=== PATIENT | female | born 1995 | race Caucasian/White ===

== ENCOUNTER 2019-02-03 22:17 | Emergency (ER) | payer MEDICAID ==
--- NOTE | 2019-02-03 23:48 | EDM.PDOC ---
ED HPI GENERAL MEDICAL PROBLEM - General Chief Complaint: Respiratory Problem Stated Complaint: SHORT OF BREATH,COUGH Time Seen by Provider: 02/03/19 23:14 Source of Information: Reports: Patient, Family, RN Notes Reviewed History Limitations: Reports: No Limitations - History of Present Illness INITIAL COMMENTS - FREE TEXT/NARRATIVE: 23-year-old female presents emergency department a complaint of cough and sputum production, has had fevers at night does produce sputum that is yellow in color does not use tobacco products - Related Data Allergies Allergy/AdvReac Type Severity Reaction Status Date / Time dog dander Allergy Respiratory Verified 02/03/19 23:06 Distress Home Meds: Home Meds NK [No Known Home Meds] 02/03/19 [History] Past Medical History Respiratory History: Reports: Asthma Social & Family History - Tobacco Use Smoking Status *Q: Never Smoker - Caffeine Use Caffeine Use: Reports: Coffee - Recreational Drug Use Recreational Drug Use: No ED ROS GENERAL - Review of Systems Review Of Systems: See Below Constitutional: Reports: Fever HEENT: Reports: No Symptoms Respiratory: Reports: Shortness of Breath, Cough, Sputum Cardiovascular: Reports: No Symptoms GI/Abdominal: Reports: No Symptoms ED EXAM, GENERAL - Physical Exam Exam: See Below Exam Limited By: No Limitations General Appearance: Alert, WD/WN, No Apparent Distress Ears: Normal External Exam, Normal Canal, Hearing Grossly Normal, Normal TMs Nose: Normal Inspection, Normal Mucosa, No Blood Throat/Mouth: Normal Inspection, Normal Lips, Normal Teeth, Normal Gums, Normal Oropharynx, Normal Voice, No Airway Compromise Head: Atraumatic, Normocephalic Neck: Normal Inspection, Supple, Non-Tender, Full Range of Motion Respiratory/Chest: No Respiratory Distress, Lungs Clear, Normal Breath Sounds, No Accessory Muscle Use, Chest Non-Tender Cardiovascular: Regular Rate, Rhythm, No Murmur Course - Vital Signs Last Recorded V/S: Last Vital Signs Temp 97.6 F 02/03/19 23:08 Pulse 75 02/03/19 23:08 Resp 16 02/03/19 23:08 BP 166/107 H 02/03/19 23:08 Pulse Ox 97 02/03/19 23:08 Departure - Departure Time of Disposition: 23:47 Disposition: Home, Self-Care 01 Condition: Fair Clinical Impression: Bronchitis - Discharge Information Instructions: Upper Respiratory Infection, Adult Referrals: Bib Casiano MD [Primary Care Provider] - Additional Instructions: Take full course of antibiotics, please followup with your primary care provider in 3-5 days if not better, please call return to the emergency department with worsening of symptoms. Sepsis Event Note - Evaluation Sepsis Screening Result: No Definite Risk - Focused Exam Vital Signs: Vital Signs Temp Pulse Resp BP Pulse Ox 02/03/19 23:08 97.6 F 75 16 166/107 H 97 02/03/19 23:01 97.6 F 75 16 166/107 H 97 Date Exam was Performed: 02/03/19 Time Exam was Performed: 23:44 - Assessment/Plan Plan: Assessment Acuity = acute Site and laterality = bronchitis Etiology = suspicious for bacterial cause Manifestations = cough Location of injury = Home Lab values = none Plan Elect to treat empirically azithromycin 5-day course follow-up primary care 3 to 5 days if not better This note was dictated using [employer] voice recognition software please call with any questions on syntax or grammar.
== END 2019-02-03 23:58 | disposition home or self-care (01) ==
LOC: JP.ED 22:17
DX: J40 Bronchitis, not specified as acute or chronic (principal); Z91.048 Other nonmedicinal substance allergy status
CPT/HCPCS: 99283

== ENCOUNTER 2019-02-07 13:04 | Emergency (ER) | payer MEDICAID ==
--- NOTE | 2019-02-07 13:53 | EDM.PDOC ---
ED HPI GENERAL MEDICAL PROBLEM - General Chief Complaint: General Stated Complaint: TOOTH PAIN Time Seen by Provider: 02/07/19 13:35 Source of Information: Reports: Patient, Old Records History Limitations: Reports: No Limitations - History of Present Illness INITIAL COMMENTS - FREE TEXT/NARRATIVE: 23 yo female with L sided face pain. No pain with chewing or brushing. Sx's for a couple days and worsening. Has nasal discharge, nonpurulent. No fever. Partial relief with ibuprofen. No SEO. No facial swelling. Onset: Gradual Onset Date: 02/05/19 Duration: Day(s):, Getting Worse Location: Reports: Face Quality: Reports: Pressure Severity: Moderate Improves with: Reports: Medication Worsens with: Reports: Other (time) Context: Reports: Other (see HPI) Associated Symptoms: Reports: No Other Symptoms. 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 Left Face/Facial Pain Score (Numeric/FACES): 6 - Related Data Allergies Allergy/AdvReac Type Severity Reaction Status Date / Time dog dander Allergy Respiratory Verified 02/07/19 13:18 Distress Home Meds: Home Meds Azithromycin [Zithromax] 250 mg PO DAILY 02/07/19 [History] Past Medical History HEENT History: Reports: Impaired Vision Respiratory History: Reports: Asthma Endocrine/Metabolic History: Reports: Obesity/BMI 30+ - Past Surgical History Head Surgeries/Procedures: Reports: None HEENT Surgical History: Reports: None Respiratory Surgical History: Reports: None Endocrine Surgical History: Reports: None Dermatological Surgical History: Reports: None Social & Family History - Tobacco Use Smoking Status *Q: Never Smoker Second Hand Smoke Exposure: No - Caffeine Use Caffeine Use: Reports: Coffee - Recreational Drug Use Recreational Drug Use: No ED ROS GENERAL - Review of Systems Review Of Systems: See Below Constitutional: Reports: No Symptoms HEENT: Reports: Rhinitis, Sinus Problem. Denies: Dental Pain, Ear Discharge, Ear Pain, Eye Discharge, Eye Pain, Nosebleed, Throat Pain, Throat Swelling Respiratory: Reports: No Symptoms Cardiovascular: Reports: No Symptoms GI/Abdominal: Reports: No Symptoms : Reports: No Symptoms Musculoskeletal: Reports: No Symptoms Skin: Reports: No Symptoms Neurological: Reports: No Symptoms ED EXAM, GENERAL - Physical Exam Exam: See Below Exam Limited By: No Limitations General Appearance: Alert, WD/WN, No Apparent Distress, Obese Eye Exam: Bilateral Eye: Normal Inspection Ears: Normal External Exam, Normal Canal, Hearing Grossly Normal, Normal TMs Ear Exam: Bilateral Ear: Auricle Normal, Canal Normal, TM normal Nose: Normal Inspection, No Blood, Clear Rhinorrhea, Other (nasal congestion) Throat/Mouth: Normal Inspection, Normal Lips, Normal Oropharynx, Normal Voice, No Airway Compromise Head: Atraumatic, Normocephalic, Other (tender over the L frontal and L maxillary sinuses) Neck: Normal Inspection. No: Lymphadenopathy (R), Lymphadenopathy (L) Respiratory/Chest: No Respiratory Distress, Lungs Clear, Normal Breath Sounds, No Accessory Muscle Use Cardiovascular: Regular Rate, Rhythm, No Edema Back Exam: Normal Inspection. No: CVA Tenderness (R), CVA Tenderness (L) Extremities: Normal Inspection, Normal Range of Motion, Non-Tender, No Pedal Edema Neurological: Alert, Oriented, CN II-XII Intact, Normal Cognition, No Motor/ Sensory Deficits Psychiatric: Normal Affect, Normal Mood Skin Exam: Warm, Dry, Intact, Normal Color, No Rash Course - Vital Signs Last Recorded V/S: Last Vital Signs Temp 36.7 C 02/07/19 13:20 Pulse 98 02/07/19 13:20 Resp 17 02/07/19 13:20 BP 180/116 H 02/07/19 13:20 Pulse Ox 95 02/07/19 13:20 Departure - Departure Time of Disposition: 13:52 Disposition: Home, Self-Care 01 Condition: Good Clinical Impression: Sinus pressure - Discharge Information *PRESCRIPTION DRUG MONITORING PROGRAM REVIEWED*: No *COPY OF PRESCRIPTION DRUG MONITORING REPORT IN PATIENT JUAN CARLOS: No Referrals: Bib Casiano MD [Primary Care Provider] - Additional Instructions: Afrin nasal spray per package instructions for 3 days only. Ibuprofen 600 mg every 6 hrs and/or acetaminophen 1000 mg every 6 hrs for pain relief. Try using the sinus rinse product a couple times per day. Take Amox as directed. Recheck in the clinic later in this next week. Sepsis Event Note - Evaluation Sepsis Screening Result: No Definite Risk - Focused Exam Vital Signs: Vital Signs Temp Pulse Resp BP Pulse Ox 02/07/19 13:20 36.7 C 98 17 180/116 H 95 02/07/19 13:17 36.7 C 98 17 180/116 H 95 Date Exam was Performed: 02/07/19 Time Exam was Performed: 13:47
== END 2019-02-07 13:59 | disposition home or self-care (01) ==
LOC: JP.ED 13:04
DX: J34.89 Other specified disorders of nose and nasal sinuses (principal); E66.9 Obesity, unspecified; Z68.39 Body mass index [BMI] 39.0-39.9, adult; Z91.048 Other nonmedicinal substance allergy status
CPT/HCPCS: 99283

== ENCOUNTER 2020-07-15 07:23 | Emergency (ER) | payer MEDICAID ==
[2020-07-15] MEDS ORDERED: Lactated Ringers 1,000 ML IV ONE (08:57)
[2020-07-15] MEDS ORDERED: Ondansetron 4 MG/2 ML SDV IVPUSH ONE (08:58)
[2020-07-15] MEDS ORDERED: Loperamide 2 MG Cap PO ONE (09:06)
[2020-07-15] MEDS ORDERED: Alum Hydrox/Mag Hydrox/Simeth 15 ML, Lidocaine 2% 15 ML PO ONE ×2 (09:07)
--- NOTE | 2020-07-15 09:13 | EDM.PDOC ---
ED HPI GENERAL MEDICAL PROBLEM - General Chief Complaint: Abdominal Pain Stated Complaint: NAUSEA, THROWING UP Time Seen by Provider: 07/15/20 08:50 Source of Information: Reports: Patient History Limitations: Reports: No Limitations - History of Present Illness INITIAL COMMENTS - FREE TEXT/NARRATIVE: 25 yo female presents with nausea, vomiting, and diarrhea for the past several days. No blood in her emesis or stool. No fever. No hx of any abdominal surgeries. Has had this also in the past. Has never sought medical care for it before. Has vomited x 2 today so far. Not dizzy with standing. Onset: Unknown/Unsure Duration: Day(s):, Waxing/Waning Location: Reports: Abdomen Quality: Reports: Ache Severity: Mild Improves with: Reports: Other (unsure) Worsens with: Reports: Other (unsure) Context: Reports: Other (See HPI) Associated Symptoms: Reports: Nausea/Vomiting, Other (loose stools and upper abd pain). 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 (see below) (none today) - Related Data Allergies Allergy/AdvReac Type Severity Reaction Status Date / Time dog dander Allergy Respiratory Verified 07/15/20 08:53 Distress Home Meds: Home Meds Famotidine 40 mg PO BEDTIME #30 tablet 07/15/20 [Rx] Ondansetron [Zofran ODT] 4 mg PO Q6H PRN #7 tab.dis 07/15/20 [Rx] Past Medical History HEENT History: Reports: Impaired Vision Respiratory History: Reports: Asthma Endocrine/Metabolic History: Reports: Obesity/BMI 30+ - Past Surgical History Head Surgeries/Procedures: Reports: None HEENT Surgical History: Reports: None Respiratory Surgical History: Reports: None Endocrine Surgical History: Reports: None Dermatological Surgical History: Reports: None Social & Family History - Tobacco Use Tobacco Use Status *Q: Never Tobacco User - Caffeine Use Caffeine Use: Reports: Coffee ED ROS GENERAL - Review of Systems Review Of Systems: See Below Constitutional: Reports: No Symptoms HEENT: Reports: No Symptoms Respiratory: Reports: No Symptoms Cardiovascular: Reports: No Symptoms Endocrine: Reports: No Symptoms GI/Abdominal: Reports: Abdominal Pain (upper), Diarrhea, Nausea, Vomiting. Denies: Black Stool, Bloody Stool, Constipation, Distension, Flatus, Hematemesis, Hematochezia, Melena : Reports: No Symptoms Musculoskeletal: Reports: No Symptoms Skin: Reports: No Symptoms Neurological: Reports: No Symptoms ED EXAM, GI/ABD - Physical Exam Exam: See Below Exam Limited By: No Limitations General Appearance: Alert, WD/WN, No Apparent Distress Eyes: Bilateral: Normal Appearance Ears: Normal External Exam, Normal Canal, Hearing Grossly Normal Nose: Normal Inspection, No Blood Throat/Mouth: Normal Inspection, Normal Lips, Normal Oropharynx, Normal Voice, No Airway Compromise Head: Atraumatic, Normocephalic Neck: Normal Inspection Respiratory/Chest: No Respiratory Distress, Lungs Clear, Normal Breath Sounds, No Accessory Muscle Use Cardiovascular: Regular Rate, Rhythm, No Edema GI/Abdominal Exam: Soft, No Distention, Tender (whole upper abd, worse in epigastrium). No: Non-Tender, Distended Extremities: Normal Inspection, Normal Range of Motion, Non-Tender, No Pedal Edema Neurological: Alert, Oriented, CN II-XII Intact, Normal Cognition, No Motor/Sensory Deficits Psychiatric: Normal Affect, Normal Mood Skin Exam: Warm, Dry, Intact, Normal Color, No Rash Course - Vital Signs Last Recorded V/S: Last Vital Signs Temp 36.3 C 07/15/20 08:58 Pulse 78 07/15/20 08:58 Resp 18 07/15/20 08:58 BP 152/90 H 07/15/20 08:58 Pulse Ox 99 07/15/20 08:58 - Orders/Labs/Meds Orders: Active Orders 24 hr Category Date Time Status H. PYLORI BREATH TEST Urgent Lab 07/15/20 09:07 Ordered Labs: Laboratory Tests 07/15/20 07/15/20 Range/Units 09:21 09:21 WBC 9.1 (4.5-11.0) K/uL RBC 5.17 (3.30-5.50) M/uL Hgb 13.6 (12.0-15.0) g/dL Hct 43.3 (36.0-48.0) % MCV 84 (80-98) fL MCH 26 L (27-31) pg MCHC 31 L (32-36) % Plt Count 245 (150-400) K/uL Sodium 141 (140-148) mmol/L Potassium 4.0 (3.6-5.2) mmol/L Chloride 103 (100-108) mmol/L Carbon Dioxide 26 (21-32) mmol/L Anion Gap 11.7 (5.0-14.0) mmol/L BUN 15 (7-18) mg/dL Creatinine 0.8 (0.6-1.0) mg/dL Est Cr Clr Drug Dosing 101.51 mL/min Estimated GFR (MDRD) > 60 (>60) Glucose 106 (74-106) mg/dL Calcium 9.9 (8.5-10.1) mg/dL C-Reactive Protein 1.09 H (0.0-0.3) mg/dL Meds: Medications Discontinued Medications Generic Name Dose Route Start Last Admin Trade Name Freq PRN Reason Stop Dose Admin Al Hydroxide/Mg Hydroxide 15 0 ml 07/15/20 09:07 07/15/20 09:24 ml/ Lidocaine HCl 15 ml PO 07/15/20 09:08 30 ml ONETIME ONE Administration Lactated Ringer's 1,000 mls @ 1,000 mls/hr 07/15/20 08:57 07/15/20 09:23 Ringers, Lactated IV 07/15/20 09:56 1,000 mls/hr BOLUS ONE Administration Loperamide HCl 4 mg 07/15/20 09:06 07/15/20 09:23 Loperamide 2 Mg Cap PO 07/15/20 09:07 4 mg ONETIME ONE Administration Ondansetron HCl 4 mg 07/15/20 08:58 07/15/20 09:24 Ondansetron 4 Mg/2 Ml Sdv IVPUSH 07/15/20 08:59 4 mg ONETIME ONE Administration - Re-Assessments/Exams Free Text/Narrative Re-Assessment/Exam: 07/15/20 09:50 Epigastric pain is significantly reduced after GI cocktail Departure - Departure Time of Disposition: 11:00 Disposition: Home, Self-Care 01 Condition: Fair Clinical Impression: Nausea vomiting and diarrhea Gastritis Qualifiers: Gastritis type: unspecified gastritis Chronicity: acute Gastritis bleeding: without bleeding Qualified Code(s): K29.00 - Acute gastritis without bleeding - Discharge Information *PRESCRIPTION DRUG MONITORING PROGRAM REVIEWED*: Not Applicable *COPY OF PRESCRIPTION DRUG MONITORING REPORT IN PATIENT JUAN CARLOS: Not Applicable Prescriptions: Famotidine 40 mg PO BEDTIME #30 tablet Ondansetron [Zofran ODT] 4 mg PO Q6H PRN #7 tab.dis PRN Reason: Nausea Instructions: Gastritis, Adult, [id number] Referrals: Bib Casiano MD [Primary Care Provider] - Forms: ED Department Discharge Additional Instructions: Take famotidine for reducing stomach acid production. Use Zofran as needed for nausea control. Take acetaminophen up to 1000 mg every 6 hrs for pain relief. Use loperamide per package instructions for diarrhea control. Avoid ibuprofen, Aleve, aspirin, caffeine, carbonated beverages, alcohol or tobacco. Recheck next week in the clinic to follow up on your H. pylori breath rest result. Call for an appt. Sepsis Event Note (ED) - Evaluation Sepsis Screening Result: No Definite Risk - Focused Exam Vital Signs: Vital Signs Temp Pulse Resp BP Pulse Ox 07/15/20 08:58 36.3 C 78 18 152/90 H 99 07/15/20 08:48 36.3 C 78 18 152/90 H 99 - My Orders Last 24 Hours: My Active Orders 07/15/20 09:07 H. PYLORI BREATH TEST Urgent - Assessment/Plan Last 24 Hours: My Active Orders 07/15/20 09:07 H. PYLORI BREATH TEST Urgent
[2020-07-16 18:10] LABS: H. PYLORI BREATH TEST Negative (Negative)
== END 2020-07-15 11:03 | disposition home or self-care (01) ==
LOC: JP.ED 07:23
DX: K29.00 Acute gastritis without bleeding (principal); R11.2 Nausea with vomiting, unspecified; E66.9 Obesity, unspecified; Z68.30 Body mass index [BMI] 30.0-30.9, adult; Z91.048 Other nonmedicinal substance allergy status
CPT/HCPCS: 36415; 80048; 83013; 85027; 86140; 96374; 99284; A9270; J2405; J7120

== ENCOUNTER 2020-07-22 19:16 | Emergency (ER) | payer MEDICAID ==
[2020-07-22] MEDS ORDERED: Ketorolac 30 MG/ML SDV IM ONE (20:05)
--- NOTE | 2020-07-22 20:15 | EDM.PDOC ---
ED HPI GENERAL MEDICAL PROBLEM - General Chief Complaint: Abdominal Pain Stated Complaint: SWELLING/RT SIDE UPPER ABD Time Seen by Provider: 07/22/20 20:00 Source of Information: Reports: Patient, Family History Limitations: Reports: No Limitations - History of Present Illness INITIAL COMMENTS - FREE TEXT/NARRATIVE: This is a 25 year old female presenting with RUQ and epigastric abdominal pain. She reports intermittent RUQ aching pain for the past 1 week. She reports that the pain is worsened by eating and is associated with bilious vomiting. She also reports some intermittent diarrhea. She was seen in the ED for this last week and had normal labs. She followed up with her doctor, who was concerned about gallbladder, and she has an ultrasound scheduled on 07/31/20. She reports worsening pain that has been constant today and she has been unable to eat or drink anything today, which prompted her to come in to be evaluated. She denies fever or chills. No dysuria or hematuria, but has noticed darker yellow urine. Right Upper Abdominal Pain Score (Numeric/FACES): 7 - Related Data Allergies Allergy/AdvReac Type Severity Reaction Status Date / Time dog dander Allergy Respiratory Verified 07/22/20 19:47 Distress Home Meds: Home Meds Famotidine 40 mg PO BEDTIME #30 tablet 07/15/20 [Rx] Ondansetron [Zofran ODT] 4 mg PO Q6H PRN #7 tab.dis 07/15/20 [Rx] Citalopram [Citalopram HBr] 1 tab PO DAILY 07/22/20 [History] Hydrocodone/Acetaminophen [Hydrocodon-Acetaminophen 5-325] 1 each PO Q6HR PRN #10 tablet 07/22/20 [Rx] Past Medical History HEENT History: Reports: Impaired Vision Respiratory History: Reports: Asthma Psychiatric History: Reports: Anxiety, Depression Endocrine/Metabolic History: Reports: Obesity/BMI 30+ - Infectious Disease History Infectious Disease History: Reports: Chicken Pox - Past Surgical History Head Surgeries/Procedures: Reports: None HEENT Surgical History: Reports: None Respiratory Surgical History: Reports: None Endocrine Surgical History: Reports: None Dermatological Surgical History: Reports: None Social & Family History - Family History Family Medical History: No Pertinent Family History - Tobacco Use Tobacco Use Status *Q: Never Tobacco User - Caffeine Use Caffeine Use: Reports: None - Recreational Drug Use Recreational Drug Use: Yes Recreational Drug Type: Reports: Marijuana/Hashish Recreational Drug Use Frequency: Daily ED ROS GENERAL - Review of Systems Review Of Systems: See Below Constitutional: Denies: Fever, Chills HEENT: Reports: No Symptoms Respiratory: Reports: No Symptoms Cardiovascular: Reports: No Symptoms Endocrine: Reports: No Symptoms GI/Abdominal: Reports: Abdominal Pain (RUQ & epigastric), Diarrhea, Nausea, Vomiting. Denies: Hematemesis, Hematochezia, Melena : Reports: Other (darker urine). Denies: Dysuria, Flank Pain, Frequency, Hematuria Musculoskeletal: Reports: No Symptoms Skin: Reports: No Symptoms Neurological: Reports: No Symptoms Psychiatric: Reports: No Symptoms ED EXAM, GI/ABD - Physical Exam Exam: See Below Exam Limited By: No Limitations General Appearance: Alert, WD/WN, No Apparent Distress Ears: Normal External Exam, Hearing Grossly Normal Nose: Normal Inspection, No Blood Throat/Mouth: Normal Voice Head: Atraumatic, Normocephalic Neck: Full Range of Motion Respiratory/Chest: No Respiratory Distress, Lungs Clear, Normal Breath Sounds, No Accessory Muscle Use Cardiovascular: Regular Rate, Rhythm GI/Abdominal Exam: Soft, Tender (RUQ and epigastric area). No: Guarding, Rigid, Rebound Extremities: Normal Range of Motion Neurological: Alert, Oriented, CN II-XII Intact, No Motor/Sensory Deficits Psychiatric: Normal Affect, Normal Mood Skin Exam: Warm, Dry, No Rash. No: Jaundice Course - Vital Signs Last Recorded V/S: Last Vital Signs Temp 97 F 07/22/20 19:49 Pulse 64 07/22/20 19:49 Resp 16 07/22/20 19:49 BP 152/85 H 07/22/20 19:49 Pulse Ox 99 07/22/20 19:49 - Orders/Labs/Meds Orders: Active Orders 24 hr Category Date Time Status Abdomen Ltd [US] Stat Exams 07/22/20 20:16 Taken Labs: Laboratory Tests 07/22/20 07/22/20 07/22/20 Range/Units 20:05 20:19 20:19 WBC 7.8 (4.5-11.0) K/uL RBC 4.62 (3.30-5.50) M/uL Hgb 12.4 (12.0-15.0) g/dL Hct 39.0 (36.0-48.0) % MCV 84 (80-98) fL MCH 27 (27-31) pg MCHC 32 (32-36) % Plt Count 256 (150-400) K/uL Neut % (Auto) 62.0 (36-66) % Lymph % (Auto) 25.1 (24-44) % Smith % (Auto) 9.5 H (2-6) % Eos % (Auto) 2.6 (2-4) % Baso % (Auto) 0.8 (0-1) % Sodium 141 (140-148) mmol/L Potassium 4.1 (3.6-5.2) mmol/L Chloride 103 (100-108) mmol/L Carbon Dioxide 28 (21-32) mmol/L Anion Gap 10.0 (5.0-14.0) mmol/L BUN 14 (7-18) mg/dL Creatinine 0.8 (0.6-1.0) mg/dL Est Cr Clr Drug Dosing 101.51 mL/min Estimated GFR (MDRD) > 60 (>60) Glucose 91 (74-106) mg/dL Calcium 9.3 (8.5-10.1) mg/dL Total Bilirubin 0.3 (0.2-1.0) mg/dL AST 12 L (15-37) U/L ALT 27 (12-78) U/L Alkaline Phosphatase 57 (46-116) U/L Total Protein 7.5 (6.4-8.2) g/dL Albumin 3.8 (3.4-5.0) g/dL Globulin 3.7 H (2.3-3.5) g/dL Albumin/Globulin Ratio 1.0 L (1.2-2.2) Lipase 95 (73-393) U/L Urine Color Yellow (YELLOW) Urine Appearance Cloudy A (CLEAR) Urine pH 7.0 (5.0-8.0) Ur Specific [place] 1.025 (1.008-1.030) Urine Protein Negative (NEGATIVE) mg/dL Urine Glucose (UA) Negative (NEGATIVE) mg/dL Urine Ketones Negative (NEGATIVE) mg/dL Urine Occult Blood Trace-intact H (NEGATIVE) Urine Nitrite Negative (NEGATIVE) Urine Bilirubin Negative (NEGATIVE) Urine Urobilinogen 0.2 (0.2-1.0) EU/dL Ur Leukocyte Esterase Trace H (NEGATIVE) Urine RBC 0-5 (0-5) Urine WBC 5-10 H (0-5) Ur Epithelial Cells Few Amorphous Sediment Few Urine Bacteria Moderate Urine Mucus Moderate Urine HCG, Qual 07/22/20 Range/Units 20:30 WBC (4.5-11.0) K/uL RBC (3.30-5.50) M/uL Hgb (12.0-15.0) g/dL Hct (36.0-48.0) % MCV (80-98) fL MCH (27-31) pg MCHC (32-36) % Plt Count (150-400) K/uL Neut % (Auto) (36-66) % Lymph % (Auto) (24-44) % Smith % (Auto) (2-6) % Eos % (Auto) (2-4) % Baso % (Auto) (0-1) % Sodium (140-148) mmol/L Potassium (3.6-5.2) mmol/L Chloride (100-108) mmol/L Carbon Dioxide (21-32) mmol/L Anion Gap (5.0-14.0) mmol/L BUN (7-18) mg/dL Creatinine (0.6-1.0) mg/dL Est Cr Clr Drug Dosing mL/min Estimated GFR (MDRD) (>60) Glucose (74-106) mg/dL Calcium (8.5-10.1) mg/dL Total Bilirubin (0.2-1.0) mg/dL AST (15-37) U/L ALT (12-78) U/L Alkaline Phosphatase (46-116) U/L Total Protein (6.4-8.2) g/dL Albumin (3.4-5.0) g/dL Globulin (2.3-3.5) g/dL Albumin/Globulin Ratio (1.2-2.2) Lipase (73-393) U/L Urine Color (YELLOW) Urine Appearance (CLEAR) Urine pH (5.0-8.0) Ur Specific [place] (1.008-1.030) Urine Protein (NEGATIVE) mg/dL Urine Glucose (UA) (NEGATIVE) mg/dL Urine Ketones (NEGATIVE) mg/dL Urine Occult Blood (NEGATIVE) Urine Nitrite (NEGATIVE) Urine Bilirubin (NEGATIVE) Urine Urobilinogen (0.2-1.0) EU/dL Ur Leukocyte Esterase (NEGATIVE) Urine RBC (0-5) Urine WBC (0-5) Ur Epithelial Cells Amorphous Sediment Urine Bacteria Urine Mucus Urine HCG, Qual Negative Meds: Medications Discontinued Medications Generic Name Dose Route Start Last Admin Trade Name Freq PRN Reason Stop Dose Admin Ketorolac Tromethamine 30 mg 07/22/20 20:05 07/22/20 20:21 Ketorolac 30 Mg/Ml Sdv IM 07/22/20 20:06 30 mg ONETIME ONE Administration Departure - Departure Time of Disposition: 21:50 Disposition: Home, Self-Care 01 Clinical Impression: RUQ abdominal pain, Nausea and vomiting - Discharge Information Prescriptions: Hydrocodone/Acetaminophen [Hydrocodon-Acetaminophen 5-325] 1 each PO Q6HR PRN #10 tablet PRN Reason: Pain (Severe 7-10) Instructions: Abdominal Pain, Adult, [id number] Referrals: Bib Casiano MD [Primary Care Provider] - Forms: ED Department Discharge Additional Instructions: Follow up with Dr. Casiano this week to further evaluate your symptoms. If you develop worsening pain, fever, persistent vomiting, please return to the ED for re-evaluation. Sepsis Event Note (ED) - Evaluation Sepsis Screening Result: No Definite Risk - Focused Exam Vital Signs: Vital Signs Temp Pulse Resp BP Pulse Ox 07/22/20 19:49 97 F 64 16 152/85 H 99 07/22/20 19:35 97 F 64 16 152/85 H 99 - Problem List Review Problem List Initiated/Reviewed/Updated: Yes - My Orders Last 24 Hours: My Active Orders 07/22/20 20:16 Seamless [US] Stat - Assessment/Plan Last 24 Hours: My Active Orders 07/22/20 20:16 Seamless [US] Stat Plan: This is a 25 year old female presenting with RUQ and epigastric abdominal pain associated with nausea and vomiting. She is afebrile and well appearing on arrival. She has some mild RUQ tenderness, but no rebound or guarding. She is not . Urinalysis does not reveal any evidence of infection. Labs are unremarkable, including no leukocytosis and normal LFTs. RUQ ultrasound was obtained and preliminary review did not reveal any evidence of cholelithiasis or cholecystitis. The cause of her pain is not entirely clear at this time. It is still possible this could be gallbladder related, though the next step in evaluation would be HIDA scan, which is not indicated tonight. There is no evidence of pancreatitis. It is also possible this could be gastritis, though I would suspect she would have improved with taking the famotidine at home. Abdominal exam on reassessment is still benign and I do not think a CT abd/pelvis is indicated at this time. She is appropriate for discharge home at this time with close follow up with primary care provider for further evaluation of her symptoms. She was instructed to return to the ED for any new or worsening symptoms, including worsening pain, persistent vomiting, fever, or other concerning symptoms.
--- NOTE | 2020-07-25 09:21 | US ---
Abdomen Ltd CLINICAL HISTORY: Pain COMPARISON: None. TECHNIQUE: Real-time images were obtained through the right upper quadrant. FINDINGS: The liver is free of mass or biliary dilatation. There is normal hepatic echotexture. The gallbladder has a normal appearance. The common bile duct measures 3 mm. The pancreas has a normal appearance. The right kidney measures 9.2 x 3.9 x 4.9 cm. Cortical thickness is 1.2 cm.. The IVC is normal. IMPRESSION: Negative right upper quadrant ultrasound
== END 2020-07-22 22:00 | disposition home or self-care (01) ==
LOC: JP.ED 19:16
DX: R10.11 Right upper quadrant pain (principal); R11.2 Nausea with vomiting, unspecified; E66.9 Obesity, unspecified; Z68.30 Body mass index [BMI] 30.0-30.9, adult; Z91.048 Other nonmedicinal substance allergy status
CPT/HCPCS: 36415; 76705; 80053; 81001; 81025; 83690; 85025; 96372; 99284; J1885

== ENCOUNTER 2020-08-09 13:54 | Emergency (ER) | payer MEDICAID ==
--- NOTE | 2020-08-09 14:33 | EDM.PDOC ---
ED HPI GENERAL MEDICAL PROBLEM - General Chief Complaint: Abdominal Pain Stated Complaint: ABD PAIN, VOMITING Time Seen by Provider: 08/09/20 14:15 Source of Information: Reports: Patient, Family History Limitations: Reports: No Limitations - History of Present Illness INITIAL COMMENTS - FREE TEXT/NARRATIVE: 25-year-old female has been struggling with nausea vomiting and diarrhea for the past couple of months, waxing and waning cramping abdominal pain. She has been in the emergency room 3 times and has been seen in the clinic, abdominal ultrasound and labs have been unremarkable. She is scheduled for HIDA scan in a couple of days. She has not seeing any blood in the emesis or diarrhea. No shortness of breath, fever, cough or rashes. No history of abdominal surgeries. Onset: Unknown/Unsure Duration: Week(s): (Symptoms have been ongoing for several weeks to a couple of months) Location: Reports: Abdomen (Especially right lower quadrant) Severity: Moderate Associated Symptoms: Reports: Loss of Appetite, Malaise, Nausea/Vomiting (Patient has bilious vomiting almost every morning, and watery diarrhea several times daily). Denies: Fever/Chills, Shortness of Breath Abdomen Pain Score (Numeric/FACES): 8 - Related Data Allergies Allergy/AdvReac Type Severity Reaction Status Date / Time dog dander Allergy Respiratory Verified 08/09/20 14:35 Distress Home Meds: Home Meds Famotidine 40 mg PO BEDTIME #30 tablet 07/15/20 [Rx] Ondansetron [Zofran ODT] 4 mg PO Q6H PRN #7 tab.dis 07/15/20 [Rx] Citalopram [Citalopram HBr] 1 tab PO DAILY 07/22/20 [History] Past Medical History HEENT History: Reports: Impaired Vision Respiratory History: Reports: Asthma Psychiatric History: Reports: Anxiety, Depression Endocrine/Metabolic History: Reports: Obesity/BMI 30+ - Infectious Disease History Infectious Disease History: Reports: Chicken Pox - Past Surgical History Head Surgeries/Procedures: Reports: None HEENT Surgical History: Reports: None Respiratory Surgical History: Reports: None Endocrine Surgical History: Reports: None Dermatological Surgical History: Reports: None Social & Family History - Family History Family Medical History: No Pertinent Family History - Tobacco Use Tobacco Use Status *Q: Never Tobacco User - Caffeine Use Caffeine Use: Reports: None - Recreational Drug Use Recreational Drug Use: Yes Recreational Drug Type: Reports: Marijuana/Hashish ED ROS GENERAL - Review of Systems Review Of Systems: See Below Constitutional: Reports: Malaise. Denies: Fever, Chills HEENT: Reports: No Symptoms Respiratory: Denies: Shortness of Breath Cardiovascular: Denies: Chest Pain Endocrine: Denies: Fatigue GI/Abdominal: Reports: Abdominal Pain, Diarrhea, Nausea, Vomiting : Reports: No Symptoms Musculoskeletal: Reports: No Symptoms Skin: Reports: No Symptoms Neurological: Reports: No Symptoms Psychiatric: Reports: Anxiety ED EXAM, GI/ABD - Physical Exam Exam: See Below Exam Limited By: No Limitations General Appearance: Alert, Mild Distress (Patient initially was fairly uncomfortable) Eyes: Bilateral: Normal Appearance (Good hydration, no jaundice) Head: Atraumatic Neck: Supple, Non-Tender Respiratory/Chest: Lungs Clear Cardiovascular: Regular Rate, Rhythm GI/Abdominal Exam: Normal Bowel Sounds, Soft, Tender (She does react with tenderness to palpation across the lower abdomen, especially on the right side. No rebound tenderness is present) Course - Vital Signs Last Recorded V/S: Last Vital Signs Temp 97.1 F 08/09/20 18:40 Pulse 61 08/09/20 18:40 Resp 16 08/09/20 18:40 BP 129/82 08/09/20 18:40 Pulse Ox 97 08/09/20 18:40 - Orders/Labs/Meds Labs: Laboratory Tests 08/09/20 08/09/20 Range/Units 14:40 14:40 WBC 11.4 H (4.5-11.0) K/uL RBC 4.95 (3.30-5.50) M/uL Hgb 13.5 (12.0-15.0) g/dL Hct 41.8 (36.0-48.0) % MCV 84 (80-98) fL MCH 27 (27-31) pg MCHC 32 (32-36) % Plt Count 268 (150-400) K/uL Neut % (Auto) 78.2 H (36-66) % Lymph % (Auto) 10.2 L (24-44) % [place] % (Auto) 6.7 H (2-6) % Eos % (Auto) 4.6 H (2-4) % Baso % (Auto) 0.3 (0-1) % Sodium 141 (140-148) mmol/L Potassium 4.0 (3.6-5.2) mmol/L Chloride 102 (100-108) mmol/L Carbon Dioxide 27 (21-32) mmol/L Anion Gap 11.9 (5.0-14.0) mmol/L BUN 13 (7-18) mg/dL Creatinine 0.9 (0.6-1.0) mg/dL Est Cr Clr Drug Dosing 90.23 mL/min Estimated GFR (MDRD) > 60 (>60) Glucose 94 (74-106) mg/dL Calcium 9.7 (8.5-10.1) mg/dL Total Bilirubin 0.4 (0.2-1.0) mg/dL AST 18 (15-37) U/L ALT 28 (12-78) U/L Alkaline Phosphatase 70 (46-116) U/L Total Protein 7.8 (6.4-8.2) g/dL Albumin 4.0 (3.4-5.0) g/dL Globulin 3.8 H (2.3-3.5) g/dL Albumin/Globulin Ratio 1.1 L (1.2-2.2) Lipase 77 (73-393) U/L Meds: Medications Discontinued Medications Generic Name Dose Route Start Last Admin Trade Name Anupama PRN Reason Stop Dose Admin Hydromorphone HCl 1 mg 08/09/20 15:44 08/09/20 15:52 Hydromorphone 1 Mg/Ml Syringe IM 08/09/20 15:45 1 mg ONETIME ONE Administration Ondansetron HCl 4 mg 08/09/20 15:44 08/09/20 15:52 Ondansetron 4 Mg Tab.Dis PO 08/09/20 15:45 4 mg ONETIME ONE Administration - Re-Assessments/Exams Free Text/Narrative Re-Assessment/Exam: 08/10/20 19:38 Patient was informed that the CT scan showed no real acute findings, she will take the metronidazole as prescribed. She will return for her HIDA scan on as scheduled. Departure - Departure Time of Disposition: 19:56 Disposition: Home, Self-Care 01 Clinical Impression: Gastroenteritis Abdominal pain Qualifiers: Abdominal location: generalized Qualified Code(s): R10.84 - Generalized abdominal pain - Discharge Information Instructions: Nausea and Vomiting, Adult, [id number], Abdominal Pain, Adult, [id number] Referrals: Bib Casiano MD [Primary Care Provider] - Forms: ED Department Discharge Care Plan Goals: Take antibiotic 3 times a day as prescribed for at least 7 days, we will be in touch with you with your CT results and stool cultures when available. Use Zofran for nausea and Toradol for pain as needed. Stay hydrated with liquids, and increase diet slowly as tolerated. Keep your HIDA scan appointment as scheduled. Sepsis Event Note (ED) - Evaluation Sepsis Screening Result: No Definite Risk
[2020-08-09] MEDS: Ondansetron 4 MG Tab.DIS PO ONE (15:52)
[2020-08-09] MEDS: HYDROmorphone 1 MG/ML Syringe IM ONE (15:52)
--- NOTE | 2020-08-09 19:37 | CRLCT ---
For Patients: As a result of the Century Cures Act, medical imaging exams and procedure reports are released immediately into your electronic medical record. You may view this report before your referring provider. If you have questions, please contact your health care provider. INDICATION: Right lower quadrant pain. Diarrhea. TECHNIQUE: CT abdomen and pelvis without contrast. COMPARISON: Abdominal ultrasound dated 07/22/2020. FINDINGS: Lower chest: No focal consolidation. Evaluation of solid organs is limited secondary to lack of IV contrast administration. Liver: No suspicious focal hepatic lesion. Gallbladder and bile ducts: Unremarkable. Pancreas: Unremarkable. Spleen: Too small to characterize hypodense lesion in the spleen, statistically likely benign. Splenule is noted. Adrenal glands: Unremarkable Kidneys: No hydronephrosis bilaterally. Retroperitoneum: No lymphadenopathy. Bowel and mesentery: Bowel is nonobstructed. Appendix is normal in caliber, without evidence of acute appendicitis. There are scattered prominent subcentimeter right lower quadrant mesenteric lymph nodes. Bladder: Unremarkable for degree of distension. Reproductive organs: Right adnexal/right ovarian cyst or dominant follicle measuring up to 4.5 cm. Pelvic lymph nodes: No lymphadenopathy. Vessels: Unremarkable for unenhanced study. Abdominal wall: Subcutaneous air in the left posterior flank, likely from subcutaneous injection. Bones: No suspicious/aggressive focal osseous lesion. IMPRESSION: 1. Appendix is normal in caliber. No evidence of acute appendicitis. 2. Scattered prominent subcentimeter right lower quadrant mesenteric lymph nodes, may reflect mesenteric adenitis. 3. Right ovarian cyst versus dominant follicle measuring up to 4.5 cm. Please note that all CT scans at this facility use dose modulation, iterative reconstruction, and/or weight-based dosing when appropriate to reduce radiation dose to as low as reasonably achievable. Dictated by Romero Thompson MD @ 08/09/2020 7:36:[address] Romero Thompson @ Aug 09 2020 7:36PM
== END 2020-08-09 19:57 | disposition home or self-care (01) ==
LOC: JP.ED 13:54
DX: K52.9 Noninfective gastroenteritis and colitis, unspecified (principal); J45.909 Unspecified asthma, uncomplicated; E66.9 Obesity, unspecified; Z68.38 Body mass index [BMI] 38.0-38.9, adult; Z91.048 Other nonmedicinal substance allergy status; Z79.899 Other long term (current) drug therapy
CPT/HCPCS: 36415; 74176; 80053; 83690; 85025; 87046; 87177; 87209; 87493; 87899; 89055; 96372; 99284-25; A9270-GY; J1170

== ENCOUNTER 2020-08-26 11:14 | Day surgery (SDC) | payer MEDICAID ==
[2020-08-26] MEDS ORDERED: fentaNYL 100 MCG/2 ML SDV ONE (11:25)
[2020-08-26] MEDS ORDERED: Propofol 200 MG/20 ML SDV ONE ×2 (11:25→14:10)
[2020-08-26] MEDS ORDERED: Midazolam 1 MG/ML 2 ML SDV ONE (11:25)
[2020-08-26] MEDS ORDERED: Sodium Chloride 0.9% 1,000 ML IV SCH (11:55)
--- NOTE | 2020-08-27 10:37 | OR ---
DATE OF PROCEDURE: 08/26/2020 SURGEON: Timmy Chow MD PROCEDURES: 1. Esophagogastroduodenoscopy. 2. Colonoscopy. FINDINGS: 1. Very mild inflammation of the GE junction concerning for reflux disease (biopsied using cold biopsy forceps). 2. Normal colonoscopy. COMPLICATIONS: None. ANIMAL SHELTER MANAGER: None. ANESTHESIA: MAC. PREOPERATIVE DIAGNOSIS: Diffuse abdominal pain. POSTOPERATIVE DIAGNOSIS: Diffuse abdominal pain. RISKS: Risks, benefits, alternatives, and limitations including, but not limited to, infection, bleeding, perforation, false positives, false negatives were explained to the patient, who wished to proceed. PROCEDURE IN DETAIL: The patient was placed in left lateral decubitus position. The EGD scope was introduced and advanced atraumatically to the second part of the duodenum. No evidence of duodenitis or ulceration. No gastritis. No old or new blood. At the GE junction, there was mild inflammation concerning for reflux disease. This was biopsied in all 4 quadrants using cold biopsy forceps. Digital rectal exam was performed next. Scope was introduced and advanced atraumatically to the ileocecal valve. A photo was taken of the appendiceal orifice. Scope was brought back to the ascending, transverse, descending colon, and retroflexed. No evidence of old or new blood. No masses. No polyps. No colitis. No abnormalities. The prep was acceptable. Approximately 90% of the luminal surface could be seen. Greater than 8 minutes was spent removing the scope. The patient tolerated the procedure well. Timmy Chow MD /[id number]
== END 2020-08-26 15:29 | disposition home or self-care (01) ==
LOC: JP.SDS 11:14
PROVIDERS: ATTEND Surgery
DX: K20.90 Esophagitis, unspecified without bleeding (principal); K92.2 Gastrointestinal hemorrhage, unspecified; Z91.09 Other allergy status, other than to drugs and biological substances
CPT/HCPCS: 81025; J2250; J2704; J3010; J7030

== ENCOUNTER 2020-09-08 06:07 | Day surgery (SDC) | payer MEDICAID ==
[2020-09-08] MEDS ORDERED: Sodium Chloride 0.9% 1,000 ML IV SCH (06:30)
[2020-09-08] MEDS ORDERED: Bupivacaine 0.5% 50 ML MDV ONE (06:55)
[2020-09-08] MEDS ORDERED: Lidocaine 1% with EPINEPHrine 1:100,000 50 ML MDV ONE (06:56)
[2020-09-08] MEDS ORDERED: Dexamethasone 4 MG/ML SDV ONE (07:11)
[2020-09-08] MEDS ORDERED: Ondansetron 4 MG/2 ML SDV ONE (07:11)
[2020-09-08] MEDS ORDERED: Rocuronium 50 MG/5 ML Vial ONE (07:11)
[2020-09-08] MEDS ORDERED: Neostigmine Methylsulfate 1 MG/ML 5 ML Syringe ONE (07:11)
[2020-09-08] MEDS ORDERED: Succinylcholine 200 MG/10 ML MDV ONE (07:11)
[2020-09-08] MEDS ORDERED: fentaNYL 250 MCG/5 ML SDV ONE (07:11)
[2020-09-08] MEDS ORDERED: Propofol 200 MG/20 ML SDV ONE (07:11)
[2020-09-08] MEDS ORDERED: Glycopyrrolate 0.2 MG/ML 5 ML MDV ONE (07:11)
[2020-09-08] MEDS ORDERED: metroNIDAZOLE/Normal Saline 500 MG in Premix Bag 1 BAG IV ONE (07:30)
[2020-09-08] MEDS ORDERED: ceFAZolin 2 GM in Premix Bag 1 BAG IV ONE (07:30)
[2020-09-08] MEDS ORDERED: hydrOXYzine HCL 100 MG/2 ML SDV IM PRN (07:52)
[2020-09-08] MEDS ORDERED: Docusate Sodium 100 MG Cap PO PRN (07:52)
[2020-09-08] MEDS ORDERED: Benzocaine/Cetylpyridinium/Menthol Lozenge MUCMEM PRN (07:52)
[2020-09-08] MEDS ORDERED: Zolpidem 5 MG Tab PO PRN (07:52)
[2020-09-08] MEDS ORDERED: Acetaminophen/HYDROcodone 325-5 MG Tab PO PRN (07:52)
[2020-09-08] MEDS ORDERED: fentaNYL 100 MCG/2 ML SDV ONE ×2 (08:19→08:27)
[2020-09-08] MEDS ORDERED: Ketorolac 30 MG/ML SDV ONE (08:23)
[2020-09-08] MEDS ORDERED: Lidocaine 1% with EPINEPHrine 1:100,000 50 ML MDV INJECT ONE (08:25)
[2020-09-08] MEDS ORDERED: Bupivacaine 0.5% 50 ML MDV INJECT ONE (08:25)
[2020-09-08] MEDS ORDERED: Morphine 2 MG/ML SYRINGE IVPUSH PRN (10:01)
--- NOTE | 2020-09-08 13:53 | OR ---
DATE OF PROCEDURE: 09/08/2020 SURGEON: Timmy Chow MD PROCEDURE: Laparoscopic cholecystectomy. FINDINGS: Cholelithiasis, cholecystitis. COMPLICATIONS: None. IMMIGRATION LAW SPECIALIST: None. ANESTHESIA: General. RISKS: Risks, benefits, alternatives, and limitations including but not limited to infection, bleeding, injury to abdominal structures, cystic duct leaks, common bile duct injuries, seroma, biloma, hematoma, and other risks not listed here were all explained to the patient and she wished to proceed. PROCEDURE IN DETAIL: The patient was placed in a supine position. A supraumbilical curvilinear incision was made. A Veress needle was used to enter the abdomen without abnormality. A drop test was performed without abnormality. The abdomen was subsequently insufflated. This was followed by an Optiview trocar. No evidence of enterotomy or injury was noted. An additional 10 and two 5 mm ports were entered under direct visualization. The gallbladder was retracted cephalad. The infundibulum was retracted inferolaterally. Using blunt dissection, a "clear view" of the gallbladder was obtained with a single pulsatile structure entering the gallbladder and single non-pulsatile structure entering the gallbladder. These were subsequently clipped and transected. The remaining one-third of the gallbladder was removed off the gallbladder bed without difficulty. This was delivered through the superior port without difficulty. The abdomen was irrigated with 2 L of irrigation. This liquid was removed. The pressure was dropped. No abnormal bleeding was noted. The air was removed. The wounds were closed with 3-0 Vicryl and 4-0 Vicryl in interrupted running fashion. The patient tolerated the procedure well. Timmy Chow MD /[id number]
--- NOTE | 2020-09-08 17:36 | OR ---
DATE OF PROCEDURE: 09/08/2020 SURGEON: Timmy Chow MD PROCEDURES: 1. Transversus abdominis plain block bilaterally. 2. Rectus sheath blocks bilaterally. COMPLICATION: None. NANOTECHNOLOGY ENGINEERING TECHNOLOGIST: None. RISKS: Risks, benefits, alternatives, and limitations including, but not limited to infection, bleeding, and injury to abdominal structures were explained to the patient and she wished to proceed. PROCEDURE IN DETAIL: The patient was placed in supine position. The right transversus plane was identified first. 20% of the solution was injected into this plane without difficulty. This was then performed on the other side. Bilateral rectus sheaths were then injected under direct visualization using 20% of the solution respectively. At no time was the needle blindly advanced nor passed into the peritoneum. The patient tolerated the procedure well. Timmy Chow MD /[id number]
== END 2020-09-08 12:20 | disposition home or self-care (01) ==
LOC: JP.SDS 06:07
PROVIDERS: ATTEND Surgery
DX: K81.1 Chronic cholecystitis (principal); E66.9 Obesity, unspecified; Z68.38 Body mass index [BMI] 38.0-38.9, adult
CPT/HCPCS: 36415; 47562; 51798; 80053; 84703; 85027; A9270; J0171; J0330; J0690; J1100; J1790; J1885; J2270; J2405; J2704; J2710; J2795; J3010; J3410; J3490; J7030; 88304